=== PATIENT | male | born 1945 | race Native Hawaiian/Other Pacific Islander ===

== ENCOUNTER 2020-08-15 13:44 | Outpatient (CLI) | payer OTHER, BC ==
[2020-08-15 12:05] VITALS: BP 157/79; TEMP 98.9
[2020-08-15 14:50] LABS: PLATELET COUNT 152 K/uL (142-355)
[2020-08-15 14:54] LABS: POTASSIUM 3.9 mmol/L (3.6-5.2)
== END 2020-08-15 15:20 | disposition home or self-care (01) ==
LOC: INF 13:44 → EDSEX 13:44 → INF 15:20
PROVIDERS: ATTEND Internal Medicine
DX: U07.1 COVID-19 (principal); R07.81 Pleurodynia
CPT/HCPCS: 36591; 80053; 85027; 96365

== ENCOUNTER 2020-08-15 15:50 | Outpatient (CLI) | payer OTHER, BC | END 2020-08-15 19:25 | disposition home or self-care (01) | LOC: RAD 15:50 | PROVIDERS: ATTEND Internal Medicine | DX: R07.81 Pleurodynia (principal) ==